=== PATIENT | female | born 1960 | race Caucasian/White ===

== ENCOUNTER → 2017-05-07 | Day surgery (SDC) | payer BC ==
--- NOTE | 2017-04-30 11:19 | HP ---
Admitting History and Physical - Primary Care Physician PCP: Heath Edwards - Admission Chief Complaint: right breast LCIS History of Present Illness: 57 yo female noted to have right breast calcifications at 12 oclock on mammo, underwent a right breast stereo 04/08/2017. Bx results were c/w LCIS. Patient is now to undergo a left breast WE with NL. History Source: Patient Limitations to Obtaining History: No Limitations - Past Medical History SHEEP RANCHER: Yes: Seizure (dxed 91) Cardiovascular: Yes: Hyperlipdemia - Smoking History Smoking history: Never smoked - Alcohol/Substance Use Hx Alcohol Use: Yes (WINE OCC) Home Medications - Allergies Allergies/Adverse Reactions: Allergies Allergy/AdvReac Type Severity Reaction Status Date / Time walnut Allergy Hives Verified 06/27/16 14:26 erythromycin base AdvReac Vomiting Verified 06/27/16 14:26 - Home Medications Home Medications: Ambulatory Orders Ascorbic Acid [Vitamin C -] 500 mg PO DAILY 06/27/16 Atorvastatin Ca [Lipitor] 10 mg PO HS 06/27/16 Levetiracetam [Keppra -] 1,000 mg PO BID 06/27/16 Multivitamin with Minerals [Icaps Plus] 1 each PO DAILY 06/27/16 Family Disease History - Family Disease History Family History: Unremarkable Review of Systems - Review of Systems Constitutional: reports: Other (fatigue) HENT: reports: Ringing in Ears Gastrointestinal: reports: Constipation Physical Examination Constitutional: Yes: Well Nourished, Calm Breast(s): Yes: Other (Moderately ptotic C-cup breasts with right 12 oclock bruising (site of stereo). No suspicious masses or adenopathy noted bilaterally.) Problem List - Problems (1) Lobular carcinoma in situ (LCIS) of right breast Code(s): D05.01 - LOBULAR CARCINOMA IN SITU OF RIGHT BREAST Assessment/Plan Plan: Right breast WE with NL
[2017-05-01 13:40] VITALS: BMI 30.1
[~2017-05-07] MED LIST: BUPIVACAINE HCL/PF 0.25% (2.5MG/ML) 10 ML VIAL IJ ONE; DEXTROSE 5%-0.45% SALINE 1,000 ML IV SCH; KETOROLAC TROMETHAMINE 30 MG/1 ML VIAL IVPUSH PRN; KETOROLAC TROMETHAMINE 30 MG/1 ML VIAL ONE; LIDOCAINE HCL 1%, 10 MG/ML (20ML VIAL) ONE; LIDOCAINE HCL 1%, 10 MG/ML (50 mL VIAL) IJ ONE; MIDAZOLAM HCL 2 MG/2 ML SINGLE DOSE VIAL ONE; ONDANSETRON 4 MG/2 ML VIAL IVPB PRN; PROPOFOL 20 ML ONE; ceFAZolin SODIUM 1 GM VIAL ONE
[2017-05-07 13:15] VITALS: TEMP 97.8
--- NOTE | 2017-05-07 13:32 | OP ---
DATE OF OPERATION: 05/07/2017 PREOPERATIVE DIAGNOSIS: Right breast lobular carcinoma in situ. POSTOPERATIVE DIAGNOSIS: Right breast lobular carcinoma in situ. Await permanent section. PROCEDURE: A right breast wide excision with mammographic needle localization. PRIMARY SURGEON: Israel Edwards MD [employer]AND SUPERVISOR: PARAG Davidson ANESTHESIA: Local with IV sedation. COMPLICATIONS: None. Briefly, the patient is a 57-year-old, G1, P0, postmenopausal white female with Citizen Of [place], Khmer, and Divehi heritage. She has no family history of breast or ovarian cancer. She had a previous left breast excisional biopsy in 1998, which was benign. She was found to have some clustered calcifications in the 12 o'clock region of the right breast, and stereotactic biopsy performed on April 08, 2017, showed classical-type LCIS, and there was a questionable area of minute microinvasion on slide review. Wide excision was recommended. She had preoperative clearance through a neurologist due to her previous seizure disorder and was cleared for surgery. She was brought in for the surgery on May 07, 2017, and underwent a needle localization in Radiology and was brought to the holding area. In the holding area, site verification was made, and informed consent was obtained. DESCRIPTION OF PROCEDURE: She was brought into the operating room and laid on the OR table in the supine position. Venodynes were placed on the lower extremities, and she received a gram of Ancef prior to incision. She underwent IV sedation. The right breast was sterilely prepped and draped in the usual fashion with the wire prepped in the field. Next, 1% lidocaine was given in a periareolar region and the 12 o'clock aspect of the nipple-areolar complex. Incision was made, and dissection was undertaken around the needle localization site. The breast tissue was completely removed from around the wire with the breast tissue intact around the wire. The specimen was oriented with a long lateral/short superior suture, and specimen radiographs showed removal of the clip in question. Hemostasis was achieved. The breast tissue was then reapproximated using 2-0 plain suture. The skin was closed using interrupted 3-0 deep dermal Vicryl suture and a running 4-0 subcuticular Biosyn suture. Mastisol and Steri-Strips were applied to all of the wounds, with a compressive dressing placed over this. The patient was placed in a surgical bra postoperatively. The patient tolerated the procedure well, without difficulty, and all sponge and needle counts were correct at the end of the case. ESTIMATED BLOOD LOSS: Minimal. The patient was awake, alert at the end of the case and brought back to ambulatory surgery postoperatively where she will be discharged home the same day once discharge criteria are met. She is to follow up in the office in 1 week for formal wound pathology check. ISRAEL EDWARDS M.D. [id number]
[2017-05-07 14:04] VITALS: BP 122/78; PULSE 62
--- NOTE | 2017-05-11 14:49 | PATH ---
Surgical Pathology Report Patient Name: ANA GARCIA [facility]. Rec. #: [id number] /Age/Gender: 1960 (Age: 57) / F Account: [id number] Location: [facility] Taken: 05/07/2017 Received: 05/07/2017 Reported: 05/11/2017 Physicians: Heath Edwards M.D. Specimen(s) Received RIGHT BREAST WITH EXCISION Clinical History LCIS on prior biopsy Mammographic findings: Microcalcifications Final Diagnosis BREAST, RIGHT, WIDE EXCISION: LOBULAR CARCINOMA IN SITU (LCIS), FLORID AND CLASSICAL TYPES, NUCLEAR GRADE 1-2, WITH CENTRAL NECROSIS AND CALCIFICATIONS. EXTENSIVE PRIOR BIOPSY SITE CHANGES IDENTIFIED. NO INVASIVE CARCINOMA IDENTIFIED. SURGICAL RESECTION MARGINS: FLORID LCIS IS FOCALLY LESS THAN 1 MM FROM THE SUPERIOR AND MARGIN. FIBROCYSTIC CHANGE WITH FOCAL ADENOSIS, DUCT DILATATION AND STROMAL FIBROSIS WITH ASSOCIATED FOCAL MICROCALCIFICATIONS. Comment: Immunohistochemical stain for E-cadherin performed and interpreted at [facility] show the following: E-cadherin on blocks 3 and 4 shows negative staining in the foci of LCIS supports and lobular phenotype. Immunohistochemical stains for SMM-HC and p63 performed and interpreted at [facility] on block #2 highlight preserved myoepithelial cells around foci of LCIS. Electronically Signed Trace Conn M.D. Addendum Reported: 05/12/2017 Addendum Diagnosis Results of Estrogen Receptor (ER) and Progesterone Receptor (WI) studies performed on block #3 at [facility] are as follows: ER (clone [id number] mouse monoclonal antibody by Leica): ~85% nuclear staining with moderate to strong intensity (Positive). WI (clone16 mouse monoclonal antibody by Leica): 50-60% nuclear staining with moderate to strong intensity (Positive). Positive and negative controls (internal if applicable) show appropriate results. Formalin fixation and cold ischemic times are within current ASCO/CAP recommendations for ER, WI and Her2 testing. Trace Conn M.D. Gross Description Received in formalin, labeled "right breast wide excision" is a 6.0 x 4.2 x 2.5 cm stafford-yellow, irregular, portion of fibroadipose tissue with a needle localization wire present. There is a short suture marking the superior aspect and a long suture marking the lateral aspect, per the surgeon. There is no skin or nipple present. The specimen is inked as follows: superior and lateral blue; inferior green; medial yellow; anterior red; deep black. The specimen is serially sectioned from lateral to medial. Sectioning reveals a focus of hemorrhage with a bronson metallic biopsy clip, consistent with a previous biopsy site. The breast parenchyma displays abundant dense, white, focally firm fibrous tissue. No definitive mass is identified. Stonecutter sections are submitted in 12 cassettes as follows: 1-4-area of previous biopsy site with surrounding fibrous tissue (each with superior, anterior and deep margins); 8-0-nlluvskuex fibrous tissue (each with superior, anterior and deep margins); 3-04-twpflncs margin; 11-medial margin; 12-lateral margin. Time to formalin fixation: 9 minutes Total formalin fixation time: Approximately 6 hours. 05/07/201705/07/2017
== END | disposition home or self-care (01) ==
LOC: FASU 07:05
PROVIDERS: ATTEND Surgery Surgical Oncology
PROC: 0HBT0ZX Excision of Right Breast, Open Approach, Diagnostic (ICD-10-PCS; principal; 2017-05-07 11:26)
DX: D05.01 Lobular carcinoma in situ of right breast (principal)
CPT/HCPCS: 19125; 19281; 88307-TC; 88341-TC; 88342-TC

== ENCOUNTER 2017-05-28 07:50 | Day surgery (SDC) | payer BC ==
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
[2017-05-26 12:02] VITALS: BMI 30.1
[2017-05-28] MEDS ORDERED: DEXTROSE 5%-0.45% SALINE 1,000 ML IV SCH (09:45)
[2017-05-28] MEDS ORDERED: KETOROLAC TROMETHAMINE 30 MG/1 ML VIAL IVPUSH PRN (09:45)
[2017-05-28] MEDS ORDERED: ONDANSETRON 4 MG/2 ML VIAL IVPB PRN (09:45)
[2017-05-28] MEDS ORDERED: BUPIVACAINE HCL/PF 0.25% (2.5MG/ML) 10 ML VIAL IJ ONE (10:25)
[2017-05-28] MEDS ORDERED: oxyCODONE HCL 5 MG TABLET PO PRN (10:39)
[2017-05-28] MEDS ORDERED: LACTATED RINGERS SOLUTION 1,000 ML IV SCH (10:45)
[2017-05-28] MEDS ORDERED: KETOROLAC TROMETHAMINE 30 MG/1 ML VIAL ONE (11:02)
[2017-05-28 13:05] VITALS: BP 116/65; PULSE 65; TEMP 98
--- NOTE | 2017-05-28 15:14 | OP ---
DATE OF OPERATION: 05/28/2017 PREOPERATIVE DIAGNOSIS: Right breast florid lobular carcinoma in situ. POSTOPERATIVE DIAGNOSIS: Right breast florid lobular carcinoma in situ. PROCEDURE: Reexcision of a superior margin. PRIMARY SURGEON: Israel Edwards MD ACETYLENE BURNER: PARAG Valentin There were no complications. ANESTHESIA: General laryngeal mask airway anesthesia. Briefly, the patient is a 57-year-old, G1, P0, postmenopausal female with Wolof, [place], and Amharic descent. She underwent a left breast excision in 1998 which was benign. She was found to have some calcifications in the right breast 12 o'clock region and stereotactic biopsy performed in March 2017 showed LCIS, which was florid with questionable microinvasion. She underwent a wide excision on May 07, 2017, which again showed florid LCIS but was close to the superior margin. Slides were thoroughly reviewed and there was no evidence of invasion. It was decided to reexcise the superior margin to clear margins. The patient is thus brought in now for reexcision of a superior margin. She was brought in to the hospital on May 28, 2017, and in the holding area site verification was made and informed consent was obtained. She was brought in to the operating room and laid on the OR table in a supine position. Venodynes were placed on the lower extremities prior to induction. She received 1 g of Ancef prior to incision. She underwent general laryngeal mask airway anesthesia. The right breast was sterilely prepped and draped in the usual fashion. The previous periareolar incision was reopened on the 12 o'clock periareolar border of the right breast. Dissection was undertaken and the previous biopsy cavity was easily found. The superior margin was grasped using Raj clamp and excised to completely remove the superior margin of the biopsy cavity. The specimen was removed and a suture was placed on it to erick the biopsy cavity side. It was sent to Pathology in formalin. Hemostasis was achieved. The breast parenchyma was then reapproximated using 2-0 plain suture. The skin was closed using interrupted 3-0 deep dermal Vicryl suture and a running 4-0 subcuticular Biosyn suture. Mastisol and Steri-Strips were applied over the wound with a compressive dressing placed over this. Then 0.25% Marcaine was instilled into the wound prior to closure for postoperative pain control. She was placed in a surgical bra postoperatively. The patient tolerated the procedure well without difficulty and laryngeal mask airway tube was removed at the end of the case, and the patient will be recovered and discharged home the same day. She should follow up in the office in 1 week for formal wound pathology check. All sponge and needle counts were correct at the end of the case and estimated blood loss was minimal. ISRAEL EDWARDS M.D. [id number]
--- NOTE | 2017-06-02 10:58 | PATH ---
Surgical Pathology Report Patient Name: ANA GARCIA [facility]. Rec. #: [id number] /Age/Gender: 1960 (Age: 57) / F Account: [id number] Location: [facility] Taken: 05/28/2017 Received: 05/28/2017 Reported: 06/02/2017 Physicians: Heath Edwards M.D. Specimen(s) Received RIGHT BREAST SUPERIOR MARGIN Clinical History Re-excision for florid LCIS Final Diagnosis BREAST, RIGHT, SUPERIOR MARGIN, RE-EXCISION: RESIDUAL FLORID LOBULAR CARCINOMA IN SITU (LCIS), NUCLEAR GRADE 1-2, WITH CENTRAL NECROSIS AND ASSOCIATED CALCIFICATIONS, PRESENT IN FOUR OF SIX SLIDES (4/6). FINAL SURGICAL MARGIN IS UNINVOLVED BY FLORID LCIS; FLORID LCIS IS AT 2 MM FROM THE CLOSEST FINAL MARGIN. PRIOR BIOPSY SITE CHANGES ARE PRESENT. REMAINING BREAST TISSUE SHOWS SMALL FIBROADENOMA. Electronically Signed Ivonne Bone M.D. Gross Description Received in formalin labeled "superior margin right breast," is a 3.0 x 2.4 x 1.2 cm irregular portion of fibroadipose tissue with a suture marking the biopsy cavity side, per the surgeon. The new margin is inked blue and the specimen is serially sectioned. The specimen is entirely and sequentially submitted in 6 cassettes. Time to formalin fixation: 3 minutes Total formalin fixation time: Approximately 32 hours. /05/29/2017 saudi05/29/2017
== END 2017-05-28 13:05 | disposition home or self-care (01) ==
LOC: FASU 07:50
PROVIDERS: ATTEND Surgery Surgical Oncology
PROC: 0HBT0ZX Excision of Right Breast, Open Approach, Diagnostic (ICD-10-PCS; principal; 2017-05-28 09:44)
DX: D05.01 Lobular carcinoma in situ of right breast (principal)
CPT/HCPCS: 88305-TC; 88307-TC; 94760

== ENCOUNTER → 2018-06-28 | Day surgery (SDC) | payer BC ==
--- NOTE | 2018-06-29 10:34 | OP ---
DATE OF OPERATION: 06/28/2018 PREOPERATIVE DIAGNOSIS: Left breast mass with shadowing at the 4 o'clock position, retroareolar. POSTOPERATIVE DIAGNOSIS: Left breast mass with shadowing at the 4 o'clock position, retroareolar. PROCEDURE: Left ultrasound guided core biopsy with clip placement. ANESTHESIA: Local. ATTENDING SURGEON: Rosalie Lebron MD ESTIMATED BLOOD LOSS: Minimal. COMPLICATIONS: None. DESCRIPTION OF PROCEDURE: Patient was made aware of the risks and benefits of the procedure and consented. She was placed in the supine position. Under sterile conditions with 1% Lidocaine for local anesthesia, small betzaida was made in the skin. Using a 13-guage suction biopsy device via a lateral approach under ultrasound guidance, multiple cores were obtained and submitted to Pathology. Likewise, under ultrasound guidance, a U-shaped clip was placed into the biopsy region. Well tolerated by patient, Steri-Strip and sterile bandage were applied. Will contact her with results. ROSALIE LEBRON M.D. [id number]
--- NOTE | 2018-06-29 17:06 | PATH ---
Surgical Pathology Report Patient Name: ANA GARCIA [facility]. Rec. #: [id number] /Age/Gender: 1960 (Age: 58) / F Account: [id number] Location: [facility] Taken: 06/28/2018 Received: 06/28/2018 Reported: 06/29/2018 Physicians: Mary Muller M.D. Specimen(s) Received LEFT BREAST CORE BIOPSY 4 O'CLOCK RETRO Clinical History Nonpalpable lesion Ultrasound findings: Suspicious Final Diagnosis BREAST, LEFT, 4:00, RETRO, CORE BIOPSY: BENIGN BREAST TISSUE WITH STROMAL FIBROSIS, MICROCYSTS, DUCT ECTASIA, PERIDUCTAL CHRONIC INFLAMMATION, AND ASSOCIATED MICROCALCIFICATIONS. Electronically Signed Yani Dorsey M.D. Gross Description Received in formalin labeled "left breast biopsy 4:00 retro," are 6 stafford-yellow, cylindrical portions of fibroadipose tissue ranging from 1.0-1.5 cm in length averaging 0.2 cm in diameter. The specimens are submitted in toto in 2 cassettes. Time to formalin fixation: Less than one minute Total formalin fixation time: Approximately 6 hours. 06/28/201806/28/2018
== END | disposition home or self-care (01) ==
LOC: FRADUS-SUR 12:25
PROVIDERS: ATTEND Surgery Surgical Oncology
PROC: 0HBU3ZX Excision of Left Breast, Percutaneous Approach, Diagnostic (ICD-10-PCS; principal; 2018-06-28)
DX: N60.32 Fibrosclerosis of left breast (principal); N60.12 Diffuse cystic mastopathy of left breast; N63.23 Unspecified lump in the left breast, lower outer quadrant
CPT/HCPCS: 19083; 87899; 88305-TC; A4648

== ENCOUNTER 2018-07-20 09:56 | Day surgery (SDC) | payer BC ==
[2018-07-07 12:46] VITALS: BMI 30.4
--- NOTE | 2018-07-08 13:48 | HP ---
Admitting History and Physical - Primary Care Physician PCP: Heath Edwards - Admission Chief Complaint: Left breast mass History of Present Illness: 58 yo female with h/o right LCIS (2017), was noted to have a suspicious left 4 oclock mass on US 06/16/2018. The patient underwent a left core bx which was c/ w stromal fibrosis, microcysts and chronic inflammation. Upon review of path and US, the results were felt to be discordant therefore she will undergo a left breast WE with NL. 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) Cardiovascular: Yes: Hyperlipdemia Additional Past Medical History: Bilateral pneumothoraces with chest tube placement (1978) - Past Surgical History Past Surgical History: Yes: Breast Biopsy (left breast exc bx (benign) 1998) - Smoking History Smoking history: Never smoked Have you smoked in the past 12 months: No - Alcohol/Substance Use Hx Alcohol Use: Yes (WINE OCC) Home Medications - Allergies Allergies/Adverse Reactions: Allergies Allergy/AdvReac Type Severity Reaction Status Date / Time walnut Allergy Severe Hives Verified 07/07/18 12:38 latex Allergy Intermediate Rash Verified 07/07/18 12:38 erythromycin base AdvReac Severe Vomiting Verified 07/07/18 12:38 - Home Medications Home Medications: Ambulatory Orders Ascorbic Acid [Vitamin C -] 500 mg PO DAILY 06/27/16 Atorvastatin Ca [Lipitor] 10 mg PO HS 06/27/16 Multivitamin with Minerals [Icaps Plus] 1 each PO DAILY 06/27/16 levETIRAcetam [Keppra -] 1,000 mg PO BID 06/27/16 Cholecalciferol (Vitamin D3) [Vitamin D3] 1 each PO DAILY 07/07/18 Ubidecarenone [Coq-10] 1 each PO DAILY 07/07/18 Family Disease History - Family Disease History Family History: Denies Review of Systems - Review of Systems Constitutional: reports: No Symptoms Cardiovascular: reports: No Symptoms Respiratory: reports: No Symptoms Physical Examination Constitutional: Yes: Well Nourished Breast(s): Yes: Other (Well healed right breast incision without any palpable masses or adenopathy noted bilaterally.) Problem List - Problems (1) Left breast mass Code(s): N63.20 - UNSPECIFIED LUMP IN THE LEFT BREAST, UNSPECIFIED QUADRANT Assessment/Plan Plan Left breast WE with BENITA
[2018-07-20] MEDS ORDERED: MIDAZOLAM HCL 2 MG/2 ML SINGLE DOSE VIAL ONE (12:44)
[2018-07-20] MEDS ORDERED: LIDOCAINE HCL 1%, 10 MG/ML (20ML VIAL) ONE (13:29)
[2018-07-20] MEDS ORDERED: KETOROLAC TROMETHAMINE 30 MG/1 ML VIAL IVPUSH PRN (13:44)
[2018-07-20] MEDS ORDERED: ONDANSETRON 4 MG/2 ML VIAL IVPUSH PRN (13:44)
[2018-07-20] MEDS ORDERED: DEXTROSE 5%-0.45% SALINE 1,000 ML IV SCH (13:45)
[2018-07-20] MEDS ORDERED: DESFLURANE GAS 240 ML BOTTLE IH ONE (14:14)
[2018-07-20] MEDS ORDERED: BUPIVACAINE HCL/PF 2.5 MG/ML - 30 ML VIAL IJ ONE (14:26)
[2018-07-20] MEDS ORDERED: PROMETHAZINE HCL 25 MG/1 ML VIAL IVPUSH PRN (14:48)
[2018-07-20] MEDS ORDERED: oxyCODONE HCL 5 MG TABLET PO PRN (14:48)
[2018-07-20] MEDS ORDERED: ONDANSETRON 4 MG/2 ML VIAL ONE (14:57)
[2018-07-20] MEDS ORDERED: KETOROLAC TROMETHAMINE 30 MG/1 ML VIAL ONE (16:06)
[2018-07-20 16:23] VITALS: BP 136/81; PULSE 78; TEMP 98
--- NOTE | 2018-07-20 17:08 | OP ---
DATE OF OPERATION: 07/20/2018 PREOPERATIVE DIAGNOSIS: Left breast mass. POSTOPERATIVE DIAGNOSIS: Left breast mass. PROCEDURE: Left breast excisional biopsy with needle localization. ANESTHESIA: General laryngeal mask airway anesthesia. SURGEON: Israel Edwards M.D. CYCLE DIRECTOR: Elizabeth Valentin COMPLICATIONS: There were no complications. DESCRIPTION OF PROCEDURE: Briefly, the patient is a 58-year-old G1, P0 postmenopausal white female with [place] Citizen, Divehi, and Surinamese descent. She has no family history of breast cancer. She underwent a left breast biopsy in 1998 which was benign. She had a mammography in 2017 showing some calcifications in the right breast and was found to have florid LCIS and underwent a wide excision just showing further florid LCIS. She was being followed with routine mammography, ultrasound, and MRIs. She was found to have a finding in the left breast 4 o'clock region on MRI, and ultrasound confirmed a density in this region, and biopsy was benign, just showing stromal fibrosis. On review of the ultrasound, this is felt to be slightly disconcordant. For this reason, excision was recommended. The patient was brought in for the procedure on July 20, 2018, and underwent needle localization in radiology under mammographic guidance and was brought to the holding area. In the holding area, site verification was made, and informed consent was obtained. She was brought into the operating room, laid on the OR table in the supine position. Venodynes are placed on the lower extremities. She received a gram of Ancef prior to incision. She underwent general laryngeal mask airway anesthesia. The left breast was sterilely prepped and draped in the usual fashion. A curvilinear incision was made around the nipple areolar complex of the left breast and dissection is undertaken around needle localization. The breast tissue is completely removed around the wire with the wire intact, was in the middle of the specimen. The specimen was oriented with a long lateral, short superior suture, and specimen radiographs showed removal of the clip in question. Hemostasis was achieved. The breast was then reapproximated using 2-0 plain suture. The skin was closed using interrupted 3-0 deep dermal Vicryl suture and a running 4-0 subcuticular Biosyn suture. Mastisol, Steri-Strips were applied over the wound. The patient tolerated the procedure well without difficulty, and laryngeal mask airway tube was removed, and she was brought to the post anesthesia care unit. She will be recovered and discharged home the same day when discharge criteria are met. All sponge, needle counts are correct at the end of the case. Estimated blood loss was minimal. The patient will follow up in the office in 1 week for check. ISRAEL EDWARDS M.D. [id number]
--- NOTE | 2018-07-23 15:32 | PATH ---
Surgical Pathology Report Patient Name: ANA GARCIA [facility]. Rec. #: [id number] /Age/Gender: 1960 (Age: 58) / F Account: [id number] Location: [facility] Taken: 07/20/2018 Received: 07/20/2018 Reported: 07/23/2018 Physicians: Heath Edwards M.D. Specimen(s) Received LEFT BREAST WIDE EXCISION Clinical History Left excisional biopsy for discordant findings on core biopsy Ultrasound findings: Probably benign Final Diagnosis Breast, LEFt, wide excision: Benign breast tissue showing fibrocystic changes including cyst formation, apocrine metaplasia, mild usual ductal hyperplasia (UDH), stromal fibrosis, columnar cell change, sclerosing adenosis and associated calcifications. Prior biopsy site changes are present. Comment: See also concurrent left breast core biopsy . Electronically Signed Ivonne Bone M.D. Gross Description Received in formalin, labeled "left breast wide excision," is a 4.0 x 3.2 x 1.7 cm. stafford-yellow, irregular, portion of fibroadipose tissue with a needle localization wire present. There is a short suture marking the superior aspect and a long suture marking the lateral aspect, per the surgeon. There is no skin present. The specimen is inked as follows: superior and lateral blue; inferior green; medial yellow; anterior red; deep black. The specimen is serially sectioned from medial to lateral. Sectioning reveals abundant dense, white, focally firm fibrous tissue. The specimen is entirely and sequentially submitted in 9 cassettes with the medial margin in cassette 1 and lateral margin in cassette 9. Time to formalin fixation: 14 minutes Total formalin fixation time: Approximately 28 hours. 07/21/201807/21/2018
== END 2018-07-20 16:50 | disposition home or self-care (01) ==
LOC: FASU 09:56
PROVIDERS: ATTEND Surgery Surgical Oncology
PROC: 0HBU0ZX Excision of Left Breast, Open Approach, Diagnostic (ICD-10-PCS; principal; 2018-07-20 14:07)
DX: N60.12 Diffuse cystic mastopathy of left breast (principal); Z85.3 Personal history of malignant neoplasm of breast; N60.92 Unspecified benign mammary dysplasia of left breast
CPT/HCPCS: 19281; 88307-TC; 94760

== ENCOUNTER 2019-08-22 08:39 | Day surgery (SDC) | payer BC ==
[2019-08-22 09:06] VITALS: BMI 31.1
[2019-08-22 10:55] VITALS: TEMP 97.9
[2019-08-22 11:07] VITALS: PULSE 53
[2019-08-22 13:12] VITALS: BP 129/52
--- NOTE | 2019-08-23 11:18 | PATH ---
Surgical Pathology Report Patient Name: AAN GARCIA [facility]. Rec. #: [id number] /Age/Gender: 1960 (Age: 59) / F Account: [id number] Location: U-ENDOSCOPY Taken: 08/22/2019 Received: 08/22/2019 Reported: 08/23/2019 Physicians: Janneth Alicia M.D. Specimen(s) Received A: PROXIMAL TRANSVERSE COLON POLYPS B: DISTAL TRANSVERSE COLON POLYP Clinical History History of adenoma, colon polyp Postoperative diagnosis: Polyps, diverticulosis Final Diagnosis A. PROXIMAL TRANSVERSE COLON POLYPS, POLYPECTOMY: TUBULAR ADENOMA, THREE FRAGMENTS. SEPARATE FRAGMENTS OF COLONIC MUCOSA WITH FOCAL REACTIVE LYMPHOID AGGREGATES. B. DISTAL TRANSVERSE COLON POLYP, POLYPECTOMY: SESSILE SERRATED POLYP. Electronically Signed Jr Duvall M.D. Gross Description A. Received in formalin, labeled "biopsy proximal transverse colon polyps" are 5 stafford, irregular portions of soft tissue ranging from 0.2-0.5 cm. in greatest dimension. The specimens are submitted in toto in one cassette. B. Received in formalin, labeled "biopsy distal transverse colon polyp" are 2 stafford, irregular portions of soft tissue measuring 0.2 and 0.4 cm. in greatest dimension. The specimens are submitted in toto in one cassette. 08/22/201908/22/2019
== END 2019-08-22 12:05 | disposition home or self-care (01) ==
LOC: JASU-ENDO 08:39
PROVIDERS: ATTEND Internal Medicine Gastroenterology
PROC: 0DBL8ZX Excision of Transverse Colon, Via Natural or Artificial Opening Endoscopic, Diagnostic (ICD-10-PCS; principal; 2019-08-22 09:45)
DX: Z86.010 Personal history of colon polyps (principal); D12.3 Benign neoplasm of transverse colon; K57.30 Diverticulosis of large intestine without perforation or abscess without bleeding; K64.8 Other hemorrhoids
CPT/HCPCS: 88305-TC

== ENCOUNTER → 2022-01-16 | Day surgery (SDC) | payer BC | END | disposition home or self-care (01) | LOC: FMAMMOTONE 11:42 | PROVIDERS: ATTEND Surgery Surgical Oncology | PROC: 0HBT3ZX Excision of Right Breast, Percutaneous Approach, Diagnostic (ICD-10-PCS; principal; 2022-01-16) | DX: R92.1 Mammographic calcification found on diagnostic imaging of breast (principal); D05.11 Intraductal carcinoma in situ of right breast; D05.01 Lobular carcinoma in situ of right breast; N60.11 Diffuse cystic mastopathy of right breast; N60.31 Fibrosclerosis of right breast; N60.81 Other benign mammary dysplasias of right breast; N64.1 Fat necrosis of breast; N62 Hypertrophy of breast; N64.89 Other specified disorders of breast; Z90.11 Acquired absence of right breast and nipple | CPT/HCPCS: 19081; 19082; 76098-TC-FY; 87899; 88305-TC; 88342-TC; A4648 ==

== ENCOUNTER 2023-05-27 04:25 | Day surgery (SDC) | payer BC ==
[2023-05-20 11:30] VITALS: BMI 30.9
[2023-05-27 09:45] VITALS: TEMP 97.1
[2023-05-27 10:10] VITALS: PULSE 48
[2023-05-27 10:30] VITALS: BP 136/64; RESP 18
== END 2023-05-27 10:45 | disposition home or self-care (01) ==
LOC: JASU-ENDO 04:25
PROVIDERS: ATTEND Internal Medicine Gastroenterology
PROC: 0DBL8ZX Excision of Transverse Colon, Via Natural or Artificial Opening Endoscopic, Diagnostic (ICD-10-PCS; 2023-05-27)
PROC: 0DB98ZX Excision of Duodenum, Via Natural or Artificial Opening Endoscopic, Diagnostic (ICD-10-PCS; 2023-05-27)
PROC: 0DB78ZX Excision of Stomach, Pylorus, Via Natural or Artificial Opening Endoscopic, Diagnostic (ICD-10-PCS; 2023-05-27)
PROC: 0DB68ZX Excision of Stomach, Via Natural or Artificial Opening Endoscopic, Diagnostic (ICD-10-PCS; 2023-05-27)
PROC: 0DBP8ZX Excision of Rectum, Via Natural or Artificial Opening Endoscopic, Diagnostic (ICD-10-PCS; principal; 2023-05-27 09:00)
DX: Z12.11 Encounter for screening for malignant neoplasm of colon (principal); K64.8 Other hemorrhoids; D12.3 Benign neoplasm of transverse colon; D12.8 Benign neoplasm of rectum; K57.30 Diverticulosis of large intestine without perforation or abscess without bleeding; Z86.010 Personal history of colon polyps; Z80.0 Family history of malignant neoplasm of digestive organs; K29.50 Unspecified chronic gastritis without bleeding; K44.9 Diaphragmatic hernia without obstruction or gangrene